=== PATIENT | female | born 1995 | race Caucasian/White ===

== ENCOUNTER → 2017-06-22 | Outpatient (REF) | LOC: WSOH 13:16 | DX: Z02.89 Encounter for other administrative examinations (principal) ==

== ENCOUNTER 2023-09-10 17:16 | Outpatient (RCR) | payer BC ==
[2023-09-10 13:27] VITALS: BP 91/35; PULSE 88; TEMP 98.5
[~2023-09-10 17:16] MED LIST: AMOXICILLIN 8751 TAB PO
== END 2023-09-24 | disposition home or self-care (01) ==
LOC: EUO
DX: S01.351D Open bite of right ear, subsequent encounter (principal); W54.0XXD Bitten by dog, subsequent encounter